=== PATIENT | female | born 1990 | race Caucasian/White ===

== ENCOUNTER 2016-10-12 18:11 | Emergency (ER) | payer MEDICAID ==
[2016-08-14 09:30] VITALS: BMI 24.7
[~2016-10-12 18:11] MED LIST: EFFEXOR XR150 MG PO; KLONOPIN1 MG PO; MICROGESTIN FE1 EACH PO; PERCOCET 10/3251 TA1 PO; PROTONIX20 MG PO
[2016-10-12 22:49] LABS: HCG SERUM NEGATIVE (NEGATIVE)
== END 2016-10-13 00:30 | disposition home or self-care (01) ==
LOC: D.ER 18:11
PROVIDERS: Physician Assistant Medical
DX: S06.0X0A Concussion without loss of consciousness, initial encounter (principal); V89.2XXA Person injured in unspecified motor-vehicle accident, traffic, initial encounter; Y93.89 Activity, other specified; Y92.410 Unspecified street and highway as the place of occurrence of the external cause; S16.1XXA Strain of muscle, fascia and tendon at neck level, initial encounter

== ENCOUNTER → 2016-11-21 12:05 | Outpatient (CLI) | payer MEDICAID ==
[2016-08-14 09:30] VITALS: BMI 24.7
== END | disposition home or self-care (01) ==
LOC: D.CT 12:05
DX: R10.84 Generalized abdominal pain (principal)

== ENCOUNTER 2016-12-05 18:11 | Emergency (ER) | payer MEDICAID ==
[2016-08-14 09:30] VITALS: BMI 24.7
[2016-12-05 18:55] LABS: BASOPHILS 0.1 % (0.0-2.0); EOSINOPHILS 0.2 % (0-7); HEMATOCRIT 46.4 % (36.0-48.0); HEMOGLOBIN 15.7 g/dL (12-16); IMMATURE GRANULOCYTES 0.3 % (0-5); LYMPHOCYTES 2.8 % (15-50); MCH 30.5 pg (26.0-34.0); MCHC 33.8 g/dL (31.0-37.0); MCV 90.1 fL (80.0-100.0); MEAN PLATELET VOLUME 9.9 fL (7.4-10.4); MONOCYTES 4.3 % (2-11); NEUTROPHILS 92.3 % (40-80); PLATELET COUNT 210 10x3/uL (130-400); RBC 5.15 10x6/uL (4.00-5.40); RDW 12.8 % (11.5-14.5); WBC 11.6 10x3/uL (4.8-10.8)
[2016-12-05 19:10] LABS: ALBUMIN 4.5 g/dL (3.4-5.0); ALKALINE PHOSPHATASE 100 U/L (46-116); ALT (SGPT) 162 U/L (10-68); AMYLASE - SERUM 60 U/L (25-115); BILIRUBIN - TOTAL 0.49 mg/dL (0.2-1.3); CALC OSMOLALITY 278 mosm/kg (275-300); CARBON DIOXIDE 26.4 mmol/L (21.0-32.0); CHLORIDE - SERUM 105 mmol/L (98-107); CREATININE - SERUM 0.6 mg/dL (0.6-1.3); GLUCOSE 99 mg/dL (74-106); LIPASE 98 U/L (73-393); POTASSIUM - SERUM 4.2 mmol/L (3.5-5.1); PROTEIN - SERUM 7.3 g/dL (6.4-8.2); SODIUM 141 mmol/L (136-145); UREA NITROGEN 7 mg/dL (7-18); eGFR NON AFRICAN AMERICAN > 90 mL/min (90-120)
[2016-12-05 21:21] LABS: HCG URINE NEGATIVE (NEGATIVE)
[2016-12-05 21:27] LABS: APPEARANCE HAZY (CLEAR); COLOR DK YELLOW (YELLOW)
[2016-12-05 21:28] LABS: BILIRUBIN NEGATIVE (NEGATIVE); GLUCOSE NEGATIVE (NEGATIVE); KETONE NEGATIVE (NEGATIVE); LEUKOCYTE ESTERASE 1+ (NEGATIVE); NITRITE POSITIVE (NEGATIVE); PROTEIN NEGATIVE (NEGATIVE); UROBILINOGEN NORMAL (NORMAL)
[2016-12-05 21:29] LABS: BACTERIA MANY /hpf (NONE SEEN); WHITE CELLS - URINE 25-50 /hpf (0-5)
[2016-12-05 21:30] LABS: MUCUS >1+ /lpf (NONE SEEN)
== END 2016-12-05 22:35 | disposition home or self-care (01) ==
LOC: D.ER 18:11
PROVIDERS: Emergency Medicine; Nurse Practitioner Acute Care
DX: K52.9 Noninfective gastroenteritis and colitis, unspecified (principal)

== ENCOUNTER 2017-06-01 18:35 | Emergency (ER) | payer MEDICAID ==
[2016-08-14 09:30] VITALS: BMI 24.7
== END 2017-06-01 20:41 | disposition home or self-care (01) ==
LOC: D.ER 18:35
DX: R53.1 Weakness (principal); R53.83 Other fatigue; D51.9 Vitamin B12 deficiency anemia, unspecified